=== PATIENT | male | born 1990 ===

== ENCOUNTER 2024-09-07 20:51 | Emergency (ER) | payer SELFPAY ==
[2024-09-07 21:23] VITALS: BP 153/88; PULSE 83; RESP 18; TEMP 37.1; BMI 28.3
--- NOTE | 2024-09-07 21:30 | ED.GENADULT ---
HPI - General Adult General Chief complaint: Urogenital Problems, Male Stated complaint: requests urinalysis Time Seen by Provider: 09/07/24 21:25 History of Present Illness HPI narrative: Patient would like to be tested for chlamydia. He reports sexual contact with a partner and was treated with antibiotics and he would now like to be tested again to see if the infection has cleared. He denies symptoms currently. 34-year-old man presenting to the emergency department looking for test of cure for recent chlamydia diagnosis. Apparently was treated about 1 month ago. Looking for test of cure. No symptoms. Denies any sores. Nor intercourse since treatment Related Data Home Medications ?Medication ?Instructions ?Recorded ?Confirmed No Known Home Medications 09/07/24 09/07/24 Allergies Allergy/AdvReac Type Severity Reaction Status Date / Time No Known Drug Allergies Allergy Verified 09/07/24 21:23 Review of Systems Status of ROS: Reports: 6 or more systems reviewed and unremarkable except as noted in History and below Exam Narrative: Exam Narrative: Pleasant. NAD. Heart in regular rate and rhythm. Breathing easily. Genitourinary exam was not done Const: Vital Signs, click to edit/add: Vital Signs - 24 hr 09/07/24 21:23 Temperature 98.8 F Pulse Rate [Pulse Oximeter] 83 Respiratory Rate 18 Blood Pressure [Ri ght Upper Arm] 153/88 H Oxygen Delivery Me thod Room Air Documenting provider has reviewed patient's vital signs: yes Course Vital Signs Vital signs: Initial Vital Signs Temperature 98.8 F 09/07/24 21:23 Temperature Source Temporal Artery Scan 09/07/24 21:23 Pulse Rate 83 09/07/24 21:23 Respiratory Rate 18 09/07/24 21:23 Blood Pressure 153/88 H 09/07/24 21:23 Blood Pressure Mean 109 H 09/07/24 21:23 Oxygen Delivery Method Room Air 09/07/24 21:23 Vital Signs Temperature 98.8 F 09/07/24 21:23 Pulse Rate 83 09/07/24 21:23 Respiratory Rate 18 09/07/24 21:23 Blood Pressure 153/88 H 09/07/24 21:23 Oxygen Delivery Method Room Air 09/07/24 21:23 Temperature 98.8 F 09/07/24 21:23 Pulse Rate 83 09/07/24 21:23 Respiratory Rate 18 09/07/24 21:23 Blood Pressure 153/88 H 09/07/24 21:23 Oxygen Delivery Method Room Air 09/07/24 21:23 Medical Decision Making MDM Narrative Medical decision making narrative: Certainly can do a test of cure though I am not sure if it is entirely indicated. No other symptoms to warrant further evaluation. Ordered only for urine screening of gonorrhea and chlamydia. Negative screen. Informed Mr. Sadler Lab Data Lab results reviewed: Yes I reviewed the patient's lab results Labs: Lab Results 09/07/24 Range/Units 21:40 Urine Color Yellow (Yellow) Urine Appearance Clear (Clear) Urine pH 5.5 (5.0-8.5) Ur Specific [place] 1.025 (1.000-1.030) Urine Protein Negative (Negative) Urine Glucose (UA) Negative (Negative) Urine Ketones Negative (Negative) Urine Blood Trace-intact A (Negative) Urine Nitrite Negative (Negative) Urine Bilirubin Negative (Negative) Urine Urobilinogen 0.2 (0.2-1.0) Ur Leukocyte Esterase Negative (Negative) Urine RBC 0-2 (0-2) Urine WBC 0-2 (0-5) Ur Squamous Epith Cells Few (None-Few) Urine Bacteria None (None) C.trachomatis Ampl DNA NOT DETECTED (No Detected) N.gonorrhoeae Ampl DNA NOT DETECTED (No Detected) Discharge Plan Discharge Clinical Impression: Screening due Additional Instructions: Congratulations. You look to be clear of this infection. See copies of your labs enclosed Felicitaciones. Parece que no tiene esta infecci?n. Flower las copias de soren an?lisis adjuntas. Prescriptions: No Action No Known Home Medications Follow Up/Referrals: Provider,Not a Local [Primary Care Provider] - Stand Alone Forms: [facility] Info Instructions
[2024-09-07 21:48] LABS: Appearance Urine Clear (Clear); Bilirubin Urine Negative (Negative); Blood Urine Trace-intact (Negative); Color Urine Yellow (Yellow); Glucose Urine Negative (Negative); Ketones Urine Negative (Negative); Leukocyte Esterase Urine Negative (Negative); Nitrite Urine Negative (Negative); Protein Urine Negative (Negative); Specific Gravity Urine 1.025 (1.000-1.030); Urobilinogen Urine 0.2 (0.2-1.0); pH Urine 5.5 (5.0-8.5)
[2024-09-07 22:37] LABS: RBC Urine 0-2 (0-2); Squamous Epithelial Cell Urine Few (None-Few); WBC Urine 0-2 (0-5)
[2024-09-07 23:38] LABS: Chlamydia DNA Amplified* NOT DETECTED (No Detected); GC DNA Amplified* NOT DETECTED (No Detected)
== END 2024-09-07 23:48 | disposition home or self-care (01) ==
PROVIDERS: Emergency Provider Family Medicine
DX: Z11.3 Encounter for screening for infections with a predominantly sexual mode of transmission (principal)
CPT/HCPCS: 81001; 87491; 87591; 99282; 99283; 99284